=== PATIENT | female | born 1995 | race African-American/Black ===

== ENCOUNTER 2023-07-21 21:46 | Emergency (ER) | payer BC ==
[2023-07-21 23:21] LABS: HIV (1/2) Antibody/Antigen Non-Reactive (NonReactive); HIV 1/2 INDEX 0.12 S/CO (<1.00)
[2023-07-22 14:43] LABS: Hep C IgG Ab Non-Reactive S/CO (NonReactive); Hep C Index 0.08 S/CO (0-0.79)
[2023-07-22 14:50] LABS: HBSAB Concentration 25.78 mIU/mL; Hep B Surf AB Reactive (NonReactive)
== END 2023-07-22 01:12 | disposition home or self-care (01) ==
LOC: CSHERS 21:46
DX: Z57.8 Occupational exposure to other risk factors (principal)
CPT/HCPCS: 36415; 99283